=== PATIENT | male | born 1960 | race American Indian/Alaskan Native ===

== ENCOUNTER → 2025-08-07 | Outpatient (CLI) | payer BC, SELFPAY ==
[2025-08-07 08:43] LABS: Cardiac Risk Estimate 3.6 RATIO (4.0-6.7); Cholesterol 167 mg/dL (132-200); HDL Cholesterol 46 mg/dL (40-60); LDL Cholesterol,Calculated 102 mg/dL (0-130); Triglycerides 93 mg/dL (30-150)
== END | disposition home or self-care (01) ==
PROVIDERS: PCP Internal Medicine; Referring Provider Internal Medicine; Visit Provider Internal Medicine
DX: Z00.00 Encounter for general adult medical examination without abnormal findings (principal)
CPT/HCPCS: 36415; 80061